=== PATIENT | male | born 1970 | race Asian ===

== ENCOUNTER 2018-06-30 16:42 | Emergency (ER) | payer SELFPAY ==
[~2018-06-30] VITALS: Ht 167.6 cm; Wt 98.7 kg
--- NOTE | 2018-06-30 17:01 | NUR ---
pt brother: Jeremias [phone]
--- NOTE | 2018-06-30 17:17 | NUR ---
PT. IS A & O X 4 WITH C/O SOB SINCE THURSDAY. PT. HAS CRACKLES AND WHEEZING NOTED IN THE LEFT LOWER LOBE. PT. STATES CHEST WALL PAIN WITH COUGHING. PT. HAS THE CP MONITOR IN PLACE. PT. IS PINK, WARM AND DRY. RESP ARE EUPNEIC. SATS ARE 92 % ON ROOM AIR. PT. WAS PLACED ON SUPPLEMENTAL O2 AT 1 LITER PER NC. PT.'S ABD. IS SOFT AND ROUND WITH BS + X 4 QUADS. PT. IS RESTING WITH THE HOB ELEVATED GREATER THAN 30 DEGREES AT THIS TIME. CALL LIGHT IN PLACE WITH THE SIDERAILS UP X 2.
[2018-06-30 17:43] LABS: BASOPHILS # (AUTO) 0.05 x10^3/uL (0-0.1); BASOPHILS % (AUTO) 0 % (0-1); EOSINOPHILS # (AUTO) 0.03 x10^3/uL (0-0.4); EOSINOPHILS % (AUTO) 0 % (1-7); LYMPHOCYTES # (AUTO) 1.17 x10^3/uL (1-3.4); LYMPHOCYTES % (AUTO) 11 % (22-44); MD NO; MEAN CORPUSCULAR HEMOGLOBIN 31.8 pg (27.5-34.5); MEAN CORPUSCULAR HGB CONC 34.3 g/dL (33.2-36.2); MEAN CORPUSCULAR VOLUME 92.7 fL (81-97); MEAN PLATELET VOLUME 7.7 fL (7.4-10.4); MONOCYTES # (AUTO) 0.94 x10^3/uL (0.2-0.8); MONOCYTES % (AUTO) 9 % (2-9); NEUTROPHILS # (AUTO) 8.34 x10^3/uL (1.8-6.8); NEUTROPHILS % (AUTO) 79 % (42-75); PLATELET COUNT 211 x10^3/uL (130-400); RED BLOOD COUNT 4.74 x10^6/uL (4.38-5.82); RED CELL DISTRIBUTION WIDTH 13.4 % (9.4-14.8)
--- NOTE | 2018-06-30 17:43 | NUR ---
IV ACCESS ESTABLISHED. PT. LABS WERE OBTAINED. RT PHONED FOR A BREATHING TX. PT. REMAINS MONITORED.
[2018-06-30 17:49] LABS: ALBUMIN 2.7 g/dL (3.4-5.0); ANION GAP 8 mmol/L (5-15); CALCIUM 8.7 mg/dL (8.5-10.1); CHLORIDE 97 mmol/L (98-107)
[2018-06-30 17:50] LABS: CREATININE 1.08 mg/dL (0.7-1.3)
[2018-06-30] MEDS ORDERED: SODIUM CHLORIDE FLUSH 10ML SYR IVF ONE (18:00)
[2018-06-30] MEDS ORDERED: ALBUTEROL/IPRATROPIUM 2.5MG/0.5MG, 3 ML NPPB ONE (18:00)
[2018-06-30] MEDS ORDERED: ACETAMINOPHEN 325 MG TABLET PO ONE (18:00)
[2018-06-30] MEDS ORDERED: CEFTRIAXONE PMX 1GM/50ML 50 ML ONE (19:07)
[2018-06-30] MEDS ORDERED: ACETAMINOPHEN 325 MG TABLET ONE (19:07)
--- NOTE | 2018-06-30 19:12 | NUR ---
BLOOD CULTURES HAVE BEEN DRAWN. REPORT WAS GIVEN TO SARAH OLSEN WHO IS ADMINISTERING ABX TO THE PT. AT THIS TIME.
[2018-06-30 19:20] VITALS: BP 120/78
--- NOTE | 2018-06-30 19:20 | NUR ---
IV ANTIBIOTICS STARTED AFTER BLOOD CULTURES X 2 WERE DRAWN. PT SATING 94% ON RA. PT ALSO GIVEN TYLENOL ORDERED.
[2018-06-30] MEDS ORDERED: CEFTRIAXONE PMX 1GM/50ML 50 ML IV ONE (19:30)
[2018-06-30] MEDS ORDERED: POTASSIUM CHLORIDE 20 MEQ TAB.ER.PRT ONE (19:42)
[2018-06-30] MEDS ORDERED: POTASSIUM CHLORIDE 20 MEQ TAB.ER.PRT PO ONE (20:00)
== END 2018-06-30 19:47 | disposition home or self-care (01) ==
LOC: ED 19:45
DX: J18.9 Pneumonia, unspecified organism (principal); E87.6 Hypokalemia
CPT/HCPCS: 36415; 71046; 80048; 82040; 83605; 84145; 85025; 87040; 93005; 94640; 96365; 99284; J0696; J7620